=== PATIENT | female | born 1960 | race Caucasian/White ===

== ENCOUNTER 2016-04-25 17:17 | Inpatient (IN) ==
[2016-04-25] MEDS ORDERED: ALBUTEROL/IPRATROPIUM 3 ML NEB RESP TX STA (17:53)
[2016-04-25] MEDS ORDERED: LEVOFLOXACIN INJ 750 MG in PREMIX 1 EACH IV STA (17:53)
[2016-04-25] MEDS ORDERED: methylPREDNISolone SOD SUC 125 MG/2 ML VIAL IV STA (17:57)
--- NOTE | 2016-04-25 18:01 | Emergency Department Note ---
Arrival - Arrival Chief Complaint: Shortness of Breath Stated Complaint: Shortness of breath ED Nursing Triage Note: Brought in by EMS-transfer from [facility] for further evaluation of shortness of breath, pneumonia, and rule out PE. Mode of Arrival: Stretcher Limitations: No Limitations Source: Patient Time Seen by Provider: 04/25/16 17:39 - History of Present Illness HPI Narrative: This 55-year-old female presents with complaints of 12 hours of heavy chest pressure centrally located associated with a cough and dyspnea at rest and on exertion. The patient was evaluated at [facility] with notable findings of a very elevated d-dimer as well as a chest x-ray demonstrating a right lower lung infiltrate. The patient likewise in the last month has complained of bilateral leg pain with red hot swollen lower extremities. The patient is referred from the [facility] for evaluation of PTE but likewise for basic evaluation of what is going on. At [facility] the patient was given 40 mg Lasix IV, 325 mg of aspirin, and Lovenox 160 mg subcutaneous. Currently the patient appears uncomfortable but in no acute distress. Onset (ago): hour(s) (patient presents 12 hours post onset of symptoms) Consistency: constant Severity: moderate Quality: fullness Date of Last Menstrual Period: hysterectomy Allergies/Adverse Reactions: Allergies Allergy/AdvReac Type Severity Reaction Status Date / Time No Known Allergies Allergy Verified 04/25/16 17:31 Review of System - Review of System 12 point system: reviewed and no additional remarkable complaints except as stated - Review of System Constitutional: Present: as per HPI Respiratory: Present: as per HPI Cardiovascular: Present: as per HPI Musculoskeletal: Present: as per HPI Medical,Surgical,& Family Hx - Medical History Cardio: History of: CHF, Hypertension Psychological: History of: Schizophrenia Respiratory: History of: COPD - Social History Smoking Status: Never smoker Frequency of Alcohol Use: None Type of Drug Use: None Exam Physical Examination: GENERAL: Morbidly obese white female in no acute distress. HEENT: Normocephalic. No trauma. Moist mucous membranes. EOMI. PERRLA. ENT clear NECK: Supple. No adenopathy. No JVD CARDIAC: Regular. No murmurs. Heart rate 100 CHEST: Rare anterior expiratory wheeze as well as right posterior lower chest rales. No respiratory distress. O2 sat 88% ABDOMEN: Soft. Nontender. Active bowel sounds. EXTREMITIES: No trauma. Normal ROM. Bilateral stasis dermatitis with complicating stasis cellulitis and peripheral edema SKIN: No diaphoresis. No rash. Red hot tender stasis cellulitis bilaterally NEURO: Alert. Physiologic exam No focal deficits. Vital Signs: Vital Signs Temperature 97.9 F 04/25/16 17:17 Pulse Rate 101 H 04/25/16 19:17 Respiratory Rate 24 04/25/16 19:17 Blood Pressure 126/60 04/25/16 17:17 O2 Sat by Pulse Oximetry 98 04/25/16 19:17 Course - Reevaluation(s) Reevaluation #1: Discussed with patient and family the need for hospitalization further exclude her ongoing complaints and treat her establish problems. - Consultations Consultation #1: Discussed with Dr. Ham, hospitalist, who will admit for further evaluation treatment. Results - Labs Labs: Laboratory data revealed white blood cell count 8500, hematocrit 37, glucose 99 , BUN 4, creatinine 0.9, sodium 137, potassium 4.2, negative urinalysis, CK-MB 0.6, troponin 0.03, d-dimer 1.19, BNP 123, blood gas pH 7.40, PCO2 65, and PO2 43 on room air. - Impressions EKG: Sinus tachycardia at [address] changes. No acute injury pattern noted. - Diagnostic Findings Procedure: Chest x-ray: image reviewed by me, report reviewed by me (right lower lung field density), CT: image reviewed by me, report reviewed by me (non diagnostic cta), Ultrasound: image reviewed by me, report reviewed by me (no DVT lower extremities bilaterally.) Disposition Clinical Impression: respiratory failure, obesity hypoventilation, stasis cellulitis, possible PTE, CHF Case discussed with: patient, patient's family Disposition: Still a Patient Condition: Guarded Time of Disposition: 20:08
[2016-04-25] MEDS ORDERED: FUROSEMIDE 40 MG/4 ML VIAL IV STA (18:03)
[2016-04-25] MEDS ORDERED: methylPREDNISolone SOD SUC 125 MG/2 ML VIAL ONE (18:26)
[2016-04-25 18:30] LABS: ABG Base Excess 10.3 MMOL/L (-2.5-2.5); ABG Oxygen Saturation 93.2 % (95-100); ABG PCO2 62.6 MM HG (35-48); ABG PH 7.388 (7.35-7.45); ABG PO2 67.3 MM HG (80-95); ABG TCO2 34.1 MMOL/L (23-27)
[2016-04-25] MEDS ORDERED: FUROSEMIDE 40 MG/4 ML VIAL ONE (18:55)
[2016-04-25] MEDS ORDERED: LEVOFLOXACIN INJ 150 ML IV ONE (19:11)
--- NOTE | 2016-04-25 19:14 | CT Report ---
CT chest PE study Indication: Chest pain. High d-dimer. Comparison: None. Technique: CT of the chest was performed following the administration of intravenous contrast. In addition to multiple contiguous axial source images obtained from the thoracic inlet through the upper abdomen, coronal and sagittal MPR series were performed as were thin slab MIP reconstructions in the coronal and sagittal plane. Findings: Suboptimal opacification of the pulmonary arteries results in nondiagnostic study for purposes of exclusion of pulmonary artery emboli. Pulmonary arteries grossly normal in size. The heart size is normal. The aorta demonstrates no evidence of acute pathology. No adenopathy is noted within the axilla, marc, or mediastinum. Dependent atelectatic changes are present bilaterally within the lower lobes. No pleural effusions are present. Minimal margin of the right thyroid lobe is present. The visualized portion of the upper abdomen is grossly unremarkable. Impression: 1. Pulmonary artery embolus cannot be excluded. Etiology of the provided symptoms is uncertain based on the 2 attempts to scan the chest. 04/25/2016 6:57 PM PROCEDURE INTERPRETED AT [facility] DEPARTMENT OF RADIOLOGY Final Report Signed by: Dr. Santos Ventura
[2016-04-25] MEDS ORDERED: ALBUTEROL NEB SOLN 5 MG/ML 20 ML/BOTTLE CONT NEB STA (19:37)
--- NOTE | 2016-04-25 19:50 | Ultrasound Report ---
US venous doppler LE BI Indication: Lower extremity swelling and pain. Comparison: None. Technique: Using a transcutaneous probe, grayscale, spectral Doppler, and color Doppler images of the bilateral lower extremity venous structures were captured and stored. Grayscale images prior to and following compression were obtained. Interrogated venous structures include the bilateral common femoral vein, superficial femoral vein (proximal, mid, and distal), and popliteal vein. Findings: There is no evidence of thrombus within the interrogated venous structures. the interrogated venous segments demonstrate presence of both color flow and spectral flow. Impression: 1. No evidence of venous thrombosis. 04/25/2016 7:47 PM PROCEDURE INTERPRETED AT [facility] DEPARTMENT OF RADIOLOGY Final Report Signed by: Dr. Santos Ventura
--- NOTE | 2016-04-25 20:13 | Hospitalist History & Physical ---
Assessment and Plan - Time spent with patient Time spent with patient: Greater than 30 minutes (1) Dyspnea Status: Acute Assessment and plan: Patient presents with exacerbation of her chronic dyspnea. She is morbidly obese and I suspect she has obesity hypoventilation syndrome/obstructive sleep apnea which is been untreated. Chest x-ray did note possibility of a right lower lobe infiltrate for which she received IV antibiotics and been cultured. CT scan of her chest was unable to exclude pulmonary embolus and she is currently being treated with Lovenox. We will consult pulmonary for their assistance in the a.m. I'll defer ordering further studies until they have seen and evaluated. We'll continue low-dose O2 to maintain sats 88-92% as well as nebulizer therapy. Current Visit: Yes (2) Atypical chest pain Status: Acute Assessment and plan: Patient has atypical chest pain with initial negative biomarkers and EKGs. We' ll obtain serial studies throughout the night to rule out evidence of ischemia. Current Visit: Yes (3) History of congestive heart failure Status: Acute Assessment and plan: We'll obtain recent echocardiogram she had at [facility]. Continue to diurese with her extensive lower extremity edema. We'll continue her current YENY inhibitor and beta sarah as well. Further workup performed based on patient's response and results of the pending data base. Current Visit: Yes (4) Hypertension Status: Chronic Assessment and plan: Patient has chronic essential hypertension for which we'll continue her current medical regimen. Current Visit: Yes Qualifiers: Hypertension type: essential hypertension Qualified Code(s): I10 - Essential (primary) hypertension (5) possible community acquired pneumonia Status: Acute Assessment and plan: Has noted there is a possibility of right lower lobe infiltrate on chest x-ray. We will continue IV antibiotics and cultures as already initiated. However I doubt that this time this is the etiology of her exacerbation that she's been afebrile has a normal white count and no significant sputum production. Current Visit: Yes (6) Paranoid schizophrenia Status: Chronic Assessment and plan: Currently stable. We will review her medications and reinitiate as appropriate. Current Visit: Yes (7) COPD (chronic obstructive pulmonary disease) Status: Chronic Assessment and plan: Patient states that she has chronic obstructive pulmonary disease. We'll continue low-dose O2 and nebulizer therapy. Current Visit: Yes (8) Morbid obesity Status: Chronic Current Visit: Yes Qualifiers: Obesity type: with alveolar hypoventilation Qualified Code(s): E66.2 - Morbid (severe) obesity with alveolar hypoventilation History of Present Illness Chief complaint: chest pain and shortness of breath History of present illness: Ms. Feldman is a 55 year old female resident of the sn[facility] who states that over the past several weeks she's had progressive shortness of breath, lower extremity edema, intermittent chest discomfort. She does midsternal chest discomfort this morning with increasing shortness of breath as well as bilateral leg pain especially with standing. She's had a cough productive of clear phlegm but no fever. She denies any abdominal pain, nausea, vomiting, diarrhea, constipation, melena, hematochezia, hematemesis, dysuria, hematuria, urinary frequency urgency or incontinence. She was initially seen at [facility] where she was noted to have an elevated d-dimer and received subcutaneous Lovenox and transferred to [place] for further evaluation. Bilateral lower stroke and venous Dopplers have been negative. However CT scanning cannot exclude pulmonary embolus. Cardiac isoenzymes were negative and EKG revealed no acute changes. Medications from transfer record reviewed. Allergies Allergy/AdvReac Type Severity Reaction Status Date / Time No Known Allergies Allergy Verified 04/25/16 17:31 Medical,Surgical,& Family Hx - Medical History Cardio: History of: CHF, Hypertension Psychological: History of: Schizophrenia Respiratory: History of: COPD - Surgical History Abdominal Surgeries: Surgical HX of: Cholecystectomy Reproductive Surgeries: Surgical HX of;: Hysterectomy - Family History Family History: noncontributory - Social History Smoking Status: Former smoker Have you smoked in the last 12 months: No Frequency of Alcohol Use: None Type of Drug Use: None Lives With:: lives in snf 12 point system: reviewed and no additional remarkable complaints except as stated Exam - Constitutional Vitals: Period Temp Pulse Resp BP Sys/Langston Pulse Ox Last 24 Hr 97.9 F 101-106 20-24 126/60 88-98 General appearance: mild distress - Head Head exam: Present: normocephalic, atraumatic - Eye Eye exam: Present: EOMI Pupils: Present: RA - ENT ENT exam: Present: normal oropharynx - Neck Neck exam: Absent: lymphadenopathy, meningismus, tenderness, thyromegaly - Respiratory Respiratory exam: Present: clear to auscultation bilaterally, decreased breath sounds. Absent: rales, rhonchi, wheezes - Cardiovascular Cardiovascular exam: Present: regular rate and rhythm, tachycardia. Absent: gallop, rubs, systolic murmur - GI/Abdominal GI/Abdominal exam: Present: normal bowel sounds, soft. Absent: distended, mass , tenderness, rebound - Extremities Exam Extremities exam: Present: edema (2-3+ pitting edema of bilateral lower extremities). Absent: calf tenderness - Back Exam Back exam: Present: normal inspection - Neurological Exam Neurological exam: Present: alert, oriented X3, CN II-XII intact. Absent: motor sensory deficit - Psychiatric Psychiatric exam: Present: normal mood, flat affect. Absent: agitated, anxious - Skin Skin exam: Present: warm, dry. Absent: rash Results - Labs Lab Results: I have reviewed the past 24 hour labs Labs: Labs and radiologic studies as well as EKG from [facility] have been reviewed. - Diagnostic Findings Procedure: CT - chest: report reviewed by me, Ultrasound: report reviewed by me
[2016-04-25] MEDS ORDERED: oxyCODONE/ACETAMINOPHEN 5-325 MG TABLET PO ONE (20:33)
[2016-04-25] MEDS ORDERED: oxyCODONE/ACETAMINOPHEN 5-325 MG TABLET ONE (21:23)
[2016-04-25] MEDS ORDERED: ALBUTEROL 1.25 MG/3 ML NEB RESP TX PRN (22:37)
--- NOTE | 2016-04-25 22:40 | EKG Report ---
Stationary ECG Study [facility] Test Date: 04/25/2016 5:25:52 PM Pat Name: SEGUNDO CONDE Department: Room: 292 Gender: F Director Of Child Welfare Services: YESSI : 1960 Requested by: Lata Damon Order Number: [id number] Reading MD: THAIS MURRAY Intervals [place] Rate: 107 P: 77 UT: 156 QRS: 44 QRSD: 98 T: 44 QT: 351 QTc: 413 Interpretive Statements Regular sinus rhythm. Nonspecific ST and T. No acute changes. Electronically Signed On 04-26-16 09:06:59 RUBBER STAMP DIE INSPECTOR by THAIS MURRAY [email or web address]
[2016-04-26] MEDS: ENOXAPARIN 100 MG/ML SYRINGE SUBCUT SCH ×2 (00:03→12:59)
[2016-04-26] MEDS: ALBUTEROL 1.25 MG/3 ML NEB RESP TX SCH ×7 (00:11→23:31)
[2016-04-26] MEDS: FUROSEMIDE 40 MG/4 ML VIAL IV SCH ×4 (00:17→18:33)
[2016-04-26 06:03] LABS: Basophils % 0.1 % (0.0-0.8); Hematocrit 35.9 VOL% (35.7-47.0); Hemoglobin 10.8 GM/DL (12.0-16.0); Immature Granulocytes % 0.5 %; Immature Granulocytes Absolute 0.04 #; Mean Corpuscular HGB Conc 30.1 GM/DL (32-36); Mean Corpuscular Hemoglobin 27 PG (27-34); Mean Corpuscular Volume 90.4 FL (87-102); Mean Platelet Volume 8.8 FL (9.6-12.0); Monocytes # 0.2 10*3/uL (0.11-0.8); NRBC # 0.02 10*3/uL; Neutrophils # 7.2 10*3/uL (1.4-7.4); Neutrophils % 85.4 % (38.7-73.9); Platelet Count 337 10*3/uL (130-400); Red Blood Count 3.97 10*6/uL (3.8-5.5); Red Cell Distribution Width 15.2 % (9.3-17.3); White Blood Count 8.4 10*3/uL (4.5-13.71)
[2016-04-26 06:36] LABS: Calcium 8.3 MG/DL (8.5-10.1); Osmolality,Calculated 283.1 MOS/KG (273-304); Potassium 4.3 MMOL/L (3.5-5.1); Risk Ratio 5.1; VLDL CHOLESTEROL 52.8 MG/DL
--- NOTE | 2016-04-26 07:24 | EKG Report ---
Stationary ECG Study [facility] Test Date: 04/26/2016 7:10:07 AM Pat Name: SEGUNDO CONDE Department: Room: 292 Gender: F Stone Finisher: BETINA : 1960 Requested by: Lata Damon Order Number: [id number] Reading MD: MONI HEREDIA Intervals [place] Rate: 111 P: 74 MI: 148 QRS: 32 QRSD: 101 T: 46 QT: 335 QTc: 401 Interpretive Statements SINUS TACHYCARDIA LOW QRS VOLTAGE IN PRECORDIAL LEADS ABNORMAL RHYTHM ECG Electronically Signed On 04-26-16 11:22:42 PROBATION OFFICER by MONI HEREDIA [email or web address]
--- NOTE | 2016-04-26 08:33 | Pulmonology Consult Note ---
Assessment and Plan (1) Obesity hypoventilation syndrome Status: Acute Assessment and plan: The patient does appear to have chronic CO2 retention with obesity hypoventilation syndrome. She seems to be reasonably comfortable at present. We'll try a little Diamox and continue bronchodilator therapy. Current Visit: Yes (2) Morbid obesity Status: Chronic Assessment and plan: She is a [facility] patient who is mainly bedridden. She will probably not get much better. Current Visit: Yes Qualifiers: Obesity type: with alveolar hypoventilation Qualified Code(s): E66.2 - Morbid (severe) obesity with alveolar hypoventilation (3) History of congestive heart failure Status: Acute Assessment and plan: She probably does have some mild volume overload and is getting treatment. Current Visit: Yes (4) Paranoid schizophrenia Status: Chronic Assessment and plan: She seems to be relatively calm and alert at present. Current Visit: Yes (5) Hypertension Status: Chronic Assessment and plan: She will continue with antihypertensive medications. Current Visit: Yes Qualifiers: Hypertension type: essential hypertension Qualified Code(s): I10 - Essential (primary) hypertension (6) COPD (chronic obstructive pulmonary disease) Status: Chronic Assessment and plan: She has stopped smoking and will continue with bronchodilator therapy. Current Visit: Yes (7) Atypical chest pain Status: Acute Assessment and plan: She has no signs of ischemia and she looks comfortable at present. Current Visit: Yes History of Present Illness Chief complaint: chest pain History of present illness: Ms. Feldman is a 55 year old white female that is a resident of a [facility] and has schizophrenia. She apparently was sent over because she was having chest pain. She says she does have shortness of breath and I don't think she does much activity. She says she has osteoporosis and arthritis. She is very obese and cannot do a lot of activity. She says she quit smoking 2 years ago but did smoke for about 30 years. She says she coughs occasionally wheezes. She came in with chest pain and has had negative Dopplers and CT angiogram. So far she has had negative cardiac enzymes also. She does not appear short of breath or having any chest pain present. She did say at one time she used CPAP at night but doesn't anymore. Allergies Allergy/AdvReac Type Severity Reaction Status Date / Time No Known Allergies Allergy Verified 04/25/16 17:31 - Constitutional Constitutional: Present: weight gain. Absent: chills, fever(s) - EENT Eyes: Absent: loss of vision Ears: Absent: decreased hearing Nose, mouth and throat: Absent: dysphagia, headache(s), sinus pressure - Cardiovascular Cardiovascular: Present: chest pain at rest, dyspnea on exertion, orthopnea. Absent: palpitations - Respiratory Respiratory: Present: cough, dyspnea, wheezing, snoring. Absent: pain on inspiration, change in phlegm color - Gastrointestinal Gastrointestinal: Absent: abdominal pain, change in bowel habits, dysphagia, heartburn, nausea, vomiting - Genitourinary Genitourinary: Absent: difficulty urinating, hematuria, urinary incontinence - Musculoskeletal Musculoskeletal: Present: arthralgias, back pain, muscle weakness - Neurological Neurological: Absent: abnormal speech, focal weakness, paresthesias - Psychiatric Psychiatric: Present: anxiety Exam (Pulmon) H&P - Constitutional Vitals: Period Temp Pulse Resp BP Sys/Langston Pulse Ox Last 24 Hr 96.4 F-98.2 F 92-112 14-24 99-116/43-64 89-96 General appearance: no acute distress, morbidly obese - Head Head exam: Present: normal inspection, normocephalic - Eye Eye exam: Present: EOMI. Absent: scleral icterus Pupils: Present: RA - ENT ENT exam: Present: other (she has a class III Mallampati exam) - Neck Neck exam: Present: normal inspection. Absent: lymphadenopathy, thyromegaly - Respiratory Respiratory exam: Present: rhonchi, other (she is moving air fairly well now with minimal rhonchi.) - Cardiovascular Cardiovascular exam: Present: regular rate and rhythm. Absent: gallop, systolic murmur - GI/Abdominal GI/Abdominal exam: Present: normal bowel sounds, soft, other (she is very obese abdomen). Absent: distended, organomegaly, tenderness - Extremities Exam Extremities exam: Present: edema (she does have some brawny edema lower extremities). Absent: calf tenderness - Neurological Exam Neurological exam: Present: alert, oriented X3, CN II-XII intact. Absent: motor sensory deficit - Psychiatric Psychiatric exam: Present: normal mood, flat affect. Absent: agitated - Skin Skin exam: Present: warm, dry Medical,Surgical,& Family Hx - Medical History Cardio: History of: CHF, Hypertension Psychological: History of: Anxiety Disorders, Schizophrenia Respiratory: History of: Asthma, COPD Genitourinary: History of: Recurring Urinary Tract Infections - Surgical History Abdominal Surgeries: Surgical HX of: Cholecystectomy Reproductive Surgeries: Surgical HX of;: Hysterectomy - Family History Family History: Reports;: Family Heart Disease (heart attack), Family Hypertension (mother) - Social History Smoking Status: Former smoker Frequency of Alcohol Use: None Type of Drug Use: None Results - Labs CBC & BMP: 04/26/16 05:39 04/26/16 05:39 Labs: Her ABG show a PO2 of 67 with a PCO2 of 62 and a pH is 7.38 - Diagnostic Findings Procedure: CT - chest: image reviewed by me, report reviewed by me (CT shows no infiltrates or pulmonary emboli), Ultrasound: report reviewed by me (venous Dopplers are negative)
[2016-04-26] MEDS: VENLAFAXINE 75 MG TABLET PO SCH (09:25)
[2016-04-26] MEDS: clonazePAM 0.5 MG TABLET PO SCH ×2 (09:25→21:04)
[2016-04-26] MEDS: DIVALPROEX 500 MG TABLET PO SCH ×2 (09:25→21:01)
[2016-04-26] MEDS: CARVEDILOL 3.125 MG TABLET PO SCH ×2 (09:25→21:04)
[2016-04-26] MEDS: PANTOPRAZOLE 40 MG TABLET PO SCH (09:26)
[2016-04-26] MEDS: GABAPENTIN 300 MG CAPSULE PO SCH ×3 (09:26→21:04)
[2016-04-26] MEDS: LURASIDONE 40 MG TABLET PO SCH (09:26)
--- NOTE | 2016-04-26 10:37 | Hospitalist Progress Note ---
Assessment and Plan (1) CHF (congestive heart failure) Status: Acute Assessment and plan: It is not clear at the present time if she is experiencing acute CHF. I will obtain an echo and BNP. Current Visit: Yes (2) possible community acquired pneumonia Status: Acute Assessment and plan: The chest xray showed an equivocal pneumonia for which she was begun on antibiotics. Current Visit: Yes (3) Atypical chest pain Status: Acute Assessment and plan: No further chest pain. Troponins have been normal. Current Visit: Yes (4) Pulmonary emboli Status: Acute Assessment and plan: The CT of the chest was equivocal for PE, although venous duplex Doppler did not show DVT. She is presently on therapeutic anticoagulation. Current Visit: Yes (5) Hypertension Status: Chronic Assessment and plan: BP today is 116/74. Current Visit: Yes Qualifiers: Hypertension type: essential hypertension Qualified Code(s): I10 - Essential (primary) hypertension (6) Morbid obesity Status: Chronic Current Visit: Yes Qualifiers: Obesity type: with alveolar hypoventilation Qualified Code(s): E66.2 - Morbid (severe) obesity with alveolar hypoventilation (7) Paranoid schizophrenia Status: Chronic Current Visit: Yes Hospitalist: Subjective Interval history: She continues to complain of SOB and weakness. Exam - Constitutional Vitals: Period Temp Pulse Resp BP Sys/Langston Pulse Ox Last 24 Hr 96.4 F-98.2 F 92-112 14-24 99-116/43-64 89-99 General appearance: no acute distress, morbidly obese - Head Head exam: Present: normal inspection - Neck Neck exam: Present: normal inspection - Respiratory Respiratory exam: Present: decreased breath sounds - Cardiovascular Cardiovascular exam: Present: regular rate and rhythm - Extremities Exam Extremities exam: Present: edema, other (obese) - Skin Skin exam: Present: normal color Results - Labs CBC & BMP: 04/26/16 05:39 04/26/16 05:39
--- NOTE | 2016-04-26 14:18 | ECHO Report ---
Sharron Feldman Exam Date: 04/26/2016 11:42 Referring Physician: Technologist: Marah Gonzalez RDCS Age: 55 Ht (in): Wt (lb): Gender: F Exam Location: [facility] Echo Indications: Chest pain, unspecified, Dyspnea, unspecified, Morbid (severe) obesity due to excess calories, Heart failure, unspecified, Schizophrenia, Pulmonary emboli BP: / HR: Rhythm: Sinus Technical Quality: Technically difficult study IMPRESSIONS Technically difficult study. Normal left ventricular cavity size. EF 65 %. Grade I/IV diastolic dysfunction (abnormal relaxation filling pattern), normal to mildly elevated filling pressures. Mildly increased right ventricular size. The right atrium is mildly enlarged. The left atrium is mildly enlarged. Morphologically normal mitral valve. No mitral valve regurgitation. Aortic valve sclerosis. No aortic valve regurgitation. Moderate tricuspid valve regurgitation. PAP 45-50 mmHg. Pulmonic valve not well visualized. Normal pericardium without effusion. Normal ascending aorta dimension. MEASUREMENTS (Male / Female) Normal Values 2D ECHO LV Diastolic Diameter PLAX 5.3 cm 4.2 - 5.9 / 3.9 - 5.3 cm LV Systolic Diameter PLAX 3.1 cm LV Fractional Shortening PLAX 42.1 % IVS Diastolic Thickness 1.1 cm 0.6 - 1.0 / 0.6 - 0.9 cm LVPW Diastolic Thickness 1.1 cm 0.6 - 1.0 / 0.6 - 0.9 cm RV Internal Dim ED PLAX 3.8 cm Aortic Root Diameter 3.1 cm LA Systolic Diameter LX 4.3 cm 3.0 - 4.0 / 2.7 - 3.8 cm DOPPLER TR Peak Velocity 259.0 cm/s TR Peak Gradient 26.8 mmHg FINDINGS Left Ventricle Normal left ventricular cavity size. EF 65 %. Grade I/IV diastolic dysfunction (abnormal relaxation filling pattern), normal to mildly elevated filling pressures. Right Ventricle Mildly increased right ventricular size. Right Atrium The right atrium is mildly enlarged. Left Atrium The left atrium is mildly enlarged. Mitral Valve Morphologically normal mitral valve. No mitral valve regurgitation. Aortic Valve Aortic valve sclerosis. No aortic valve regurgitation. Tricuspid Valve Morphologically normal tricuspid valve. Moderate tricuspid valve regurgitation. PAP 45-50 mmHg. Pulmonic Valve Pulmonic valve not well visualized. Pericardium Normal pericardium without effusion. Aorta Normal ascending aorta dimension. Karlo Omar (Electronically Signed) Final Date: 26 April 2016 14:17
[2016-04-26] MEDS: LEVOFLOXACIN INJ 750 MG in PREMIX 1 EACH IV SCH (18:33)
[2016-04-26] MEDS: traZODone 50 MG TABLET PO SCH (21:02)
[2016-04-26] MEDS: LISINOPRIL 5 MG TABLET PO SCH (21:03)
[2016-04-27] MEDS: ENOXAPARIN 100 MG/ML SYRINGE SUBCUT SCH ×2 (00:04→11:05)
[2016-04-27] MEDS: FUROSEMIDE 40 MG/4 ML VIAL IV SCH ×4 (00:05→17:55)
[2016-04-27] MEDS: ALBUTEROL 1.25 MG/3 ML NEB RESP TX SCH ×5 (03:28→20:10)
[2016-04-27 06:28] LABS: Basophils % 0.4 % (0.0-0.8); Eosinophils % 0.3 % (0.00-10.9); Hematocrit 35.4 VOL% (35.7-47.0); Hemoglobin 10.7 GM/DL (12.0-16.0); Immature Granulocytes % 0.6 %; Immature Granulocytes Absolute 0.06 #; Lymphocytes # 2.9 10*3/uL (1.4-4.0); Lymphocytes % 29.5 % (21.3-54.2); Mean Corpuscular HGB Conc 30.2 GM/DL (32-36); Mean Corpuscular Hemoglobin 28 PG (27-34); Mean Corpuscular Volume 91.5 FL (87-102); Mean Platelet Volume 8.9 FL (9.6-12.0); Monocytes # 1.2 10*3/uL (0.11-0.8); Monocytes % 11.9 % (1.7-12.7); Neutrophils # 5.7 10*3/uL (1.4-7.4); Neutrophils % 57.3 % (38.7-73.9); Platelet Count 342 10*3/uL (130-400); Red Blood Count 3.87 10*6/uL (3.8-5.5); White Blood Count 9.9 10*3/uL (4.5-13.71)
[2016-04-27 06:56] LABS: Calcium 8.2 MG/DL (8.5-10.1); Osmolality,Calculated 283.1 MOS/KG (273-304); Potassium 3.9 MMOL/L (3.5-5.1)
--- NOTE | 2016-04-27 09:14 | Hospitalist Progress Note ---
Assessment and Plan (1) CHF (congestive heart failure) Status: Acute Assessment and plan: She continues on furosemide. She is minimally out of bed. I will consult PT. Current Visit: Yes (2) possible community acquired pneumonia Status: Acute Assessment and plan: The chest xray showed an equivocal pneumonia for which she was begun on antibiotics. This is day 3. Current Visit: Yes (3) Atypical chest pain Status: Acute Assessment and plan: No further chest pain. Troponins have been normal. Current Visit: Yes (4) Pulmonary emboli Status: Acute Assessment and plan: The CT of the chest was equivocal for PE, although venous duplex Doppler did not show DVT. She is presently on therapeutic anticoagulation. I will start warfarin. Current Visit: Yes (5) Hypertension Status: Chronic Assessment and plan: BP today is 125/60. Current Visit: Yes Qualifiers: Hypertension type: essential hypertension Qualified Code(s): I10 - Essential (primary) hypertension (6) Morbid obesity Status: Chronic Current Visit: Yes Qualifiers: Obesity type: with alveolar hypoventilation Qualified Code(s): E66.2 - Morbid (severe) obesity with alveolar hypoventilation (7) Paranoid schizophrenia Status: Chronic Current Visit: Yes Exam - Constitutional Vitals: Period Temp Pulse Resp BP Sys/Langston Pulse Ox Last 24 Hr 96.3 F-98.2 F 78-110 16-20 102-125/47-65 90-99 General appearance: no acute distress, morbidly obese - Head Head exam: Present: normal inspection - Neck Neck exam: Present: normal inspection - Respiratory Respiratory exam: Present: decreased breath sounds - Cardiovascular Cardiovascular exam: Present: regular rate and rhythm - GI/Abdominal GI/Abdominal exam: Present: normal bowel sounds, soft, other (nontender) - Extremities Exam Extremities exam: Present: edema - Skin Skin exam: Present: normal color Results - Labs CBC & BMP: 04/27/16 05:36 04/27/16 05:36 Specialty Discharge - Follow Up or Referrals - Discharge Medications No Action Alum/Mag/Simeth Liquid [Mylanta Liquid] 5 ml PO Q4HR PRN PRN Reason: Indigestion Trazodone HCl 100 mg PO QPM Gabapentin Cap/Tab [Neurontin Cap/Tab] 300 mg PO TID Acetaminophen Tab [Tylenol Tab] 500 mg PO Q6HR PRN PRN Reason: Pain Zolpidem Tartrate [Ambien] 10 mg PO QPM PRN MDD 10 mg PRN Reason: Sleep Cholecalciferol (Vitamin D3) [Vitamin D3] 5,000 unit PO DAILY Albuterol Sulfate [Proair HFA] 1 puff Q6HR Pravastatin [Pravachol] 10 mg QPM Carvedilol [Coreg] 3.125 mg PO BID clonazePAM [Klonopin] 1 mg PO BID Venlafaxine [Effexor] 75 mg PO BID W/MEALS Promethazine Tab [Phenergan Tab] 25 mg PO Q8HR PRN PRN Reason: Nausea Oxycodone HCl/Acetaminophen [Percocet 10-325 mg Tablet] 10 - 325 mg PO Q8HR PRN PRN Reason: Pain Omeprazole Magnesium [Prilosec Otc] 20 mg PO BID Methocarbamol Tab [Robaxin Tab] 750 mg PO BID Meloxicam [Mobic] 7.5 mg PO DAILY Lurasidone [Latuda] 40 mg PO DAILY Lisinopril 5 mg PO QPM Furosemide Tab [Lasix Tab] 40 mg PO DAILY Estradiol [Estrace Tab] 0.5 mg PO DAILY Divalproex ER [Depakote ER] 500 mg PO BID Cranberry Fruit [Cranberry] 450 mg PO DAILY
[2016-04-27] MEDS: VENLAFAXINE 75 MG TABLET PO SCH (09:31)
[2016-04-27] MEDS: CARVEDILOL 3.125 MG TABLET PO SCH ×2 (09:31→21:25)
[2016-04-27] MEDS: LISINOPRIL 5 MG TABLET PO SCH (09:31)
[2016-04-27] MEDS: LURASIDONE 40 MG TABLET PO SCH (09:32)
[2016-04-27] MEDS: DIVALPROEX 500 MG TABLET PO SCH ×2 (09:32→21:26)
[2016-04-27] MEDS: GABAPENTIN 300 MG CAPSULE PO SCH ×3 (09:32→21:24)
[2016-04-27] MEDS: PANTOPRAZOLE 40 MG TABLET PO SCH (09:32)
[2016-04-27] MEDS: clonazePAM 0.5 MG TABLET PO SCH ×2 (09:32→21:26)
--- NOTE | 2016-04-27 10:58 | Pulmonology Progress Note ---
Pulmonary - PN: Subj Interval history: This is a 55-year-old morbidly obese white female whom I am seeing for Dr. Laureano Ayala. She was seen in consultation by Dr. Ayala 04/26/2016. She is a [facility] patient. She has schizophrenia. She has a lot of arthritis along with back pain chest pain. Her cardiac enzymes have been negative and her pain is thought to be atypical. She also had a negative CT angiogram looking for pulmonary emboli. Her chest x-ray does appear to be normal. There may be some underlying COPD. This patient is an ex-smoker. She has been diuresed and she is getting bronchodilators. Today she says she thinks her breathing is doing fine. She notes that she sat up to sleep last night and does a lot better in this regard. There were no new requests and no new or complaints. ABGs done 04/25/2016 showed a pH of 7.388. PCO2 is 62.6. PO2 was 63.3. Bicarb was 34. Lab. Reviewed. CBC and BMP are stable. Calcium is low at 8.2. Physical exam. Vital signs. See below. Psychiatric. Slightly flat affect. Neurologic. Cranial nerves intact. Patient moves all 4 extremities. Neck is short thick symmetrical with no meningismus. Chest is wheeze free. I do not hear any significant congestion. Heart no gallop Abdomen nontender. Bowel sounds are present Extremities. Nothing to suggest deep venous thrombophlebitis. The remainder the physical exam is noncontributory. Plan. 1. Continue present regimen. 2. As per Dr. Laureano Ayala 3. Tendency towards CO2 retention avoid high FiO2's of possible. Exam (Progress Note) - Constitutional Vitals: Period Temp Pulse Resp BP Sys/Langston Pulse Ox Last 24 Hr 96.3 F-98.2 F 78-110 16-20 102-125/47-65 90-99 Results - Labs CBC & BMP: 04/27/16 05:36 04/27/16 05:36 Specialty Discharge - Follow Up or Referrals - Discharge Medications No Action Alum/Mag/Simeth Liquid [Mylanta Liquid] 5 ml PO Q4HR PRN PRN Reason: Indigestion Trazodone HCl 100 mg PO QPM Gabapentin Cap/Tab [Neurontin Cap/Tab] 300 mg PO TID Acetaminophen Tab [Tylenol Tab] 500 mg PO Q6HR PRN PRN Reason: Pain Zolpidem Tartrate [Ambien] 10 mg PO QPM PRN MDD 10 mg PRN Reason: Sleep Cholecalciferol (Vitamin D3) [Vitamin D3] 5,000 unit PO DAILY Albuterol Sulfate [Proair HFA] 1 puff Q6HR Pravastatin [Pravachol] 10 mg QPM Carvedilol [Coreg] 3.125 mg PO BID clonazePAM [Klonopin] 1 mg PO BID Venlafaxine [Effexor] 75 mg PO BID W/MEALS Promethazine Tab [Phenergan Tab] 25 mg PO Q8HR PRN PRN Reason: Nausea Oxycodone HCl/Acetaminophen [Percocet 10-325 mg Tablet] 10 - 325 mg PO Q8HR PRN PRN Reason: Pain Omeprazole Magnesium [Prilosec Otc] 20 mg PO BID Methocarbamol Tab [Robaxin Tab] 750 mg PO BID Meloxicam [Mobic] 7.5 mg PO DAILY Lurasidone [Latuda] 40 mg PO DAILY Lisinopril 5 mg PO QPM Furosemide Tab [Lasix Tab] 40 mg PO DAILY Estradiol [Estrace Tab] 0.5 mg PO DAILY Divalproex ER [Depakote ER] 500 mg PO BID Cranberry Fruit [Cranberry] 450 mg PO DAILY
[2016-04-27 11:19] LABS: INR 1.1; PT Patient Result 11.5 SECS
[2016-04-27] MEDS: WARFARIN 5 MG TABLET PO SCH (18:02)
[2016-04-27] MEDS: LEVOFLOXACIN INJ 750 MG in PREMIX 1 EACH IV SCH (18:03)
[2016-04-27] MEDS: traZODone 50 MG TABLET PO SCH (21:25)
[2016-04-28] MEDS: FUROSEMIDE 40 MG/4 ML VIAL IV SCH ×4 (00:02→17:46)
[2016-04-28] MEDS: ENOXAPARIN 100 MG/ML SYRINGE SUBCUT SCH ×2 (00:02→11:45)
[2016-04-28] MEDS: ALBUTEROL 1.25 MG/3 ML NEB RESP TX SCH ×6 (00:54→19:17)
[2016-04-28 06:14] LABS: INR 1.1; PT Patient Result 11.2 SECS
[2016-04-28] MEDS: DIVALPROEX 500 MG TABLET PO SCH ×2 (08:48→21:23)
[2016-04-28] MEDS: GABAPENTIN 300 MG CAPSULE PO SCH ×3 (08:48→21:22)
[2016-04-28] MEDS: VENLAFAXINE 75 MG TABLET PO SCH (08:48)
[2016-04-28] MEDS: LURASIDONE 40 MG TABLET PO SCH (08:48)
[2016-04-28] MEDS: CARVEDILOL 3.125 MG TABLET PO SCH ×2 (08:48→21:22)
[2016-04-28] MEDS: clonazePAM 0.5 MG TABLET PO SCH ×2 (08:48→21:22)
[2016-04-28] MEDS: LISINOPRIL 5 MG TABLET PO SCH (08:48)
[2016-04-28] MEDS: PANTOPRAZOLE 40 MG TABLET PO SCH ×2 (08:49→21:22)
--- NOTE | 2016-04-28 10:47 | Hospitalist Progress Note ---
Assessment and Plan (1) CHF (congestive heart failure) Status: Acute Assessment and plan: She continues on furosemide. She does very little physical activity. Current Visit: Yes (2) possible community acquired pneumonia Status: Acute Assessment and plan: The chest xray showed an equivocal pneumonia for which she was begun on antibiotics. This is day 4. Current Visit: Yes (3) Atypical chest pain Status: Acute Assessment and plan: No further chest pain. Troponins have been normal. Current Visit: Yes (4) Pulmonary emboli Status: Acute Assessment and plan: The CT of the chest was equivocal for PE, although venous duplex Doppler did not show DVT. She is presently on therapeutic anticoagulation. I will start warfarin. Current Visit: Yes (5) Hypertension Status: Chronic Assessment and plan: BP today is 114/57. Current Visit: Yes Qualifiers: Hypertension type: essential hypertension Qualified Code(s): I10 - Essential (primary) hypertension (6) Morbid obesity Status: Chronic Current Visit: Yes Qualifiers: Obesity type: with alveolar hypoventilation Qualified Code(s): E66.2 - Morbid (severe) obesity with alveolar hypoventilation (7) Paranoid schizophrenia Status: Chronic Current Visit: Yes Hospitalist: Subjective Interval history: She complains of weakness, dyspnea with minimal physical activity, and heartburn. Exam - Constitutional Vitals: Period Temp Pulse Resp BP Sys/Langston Pulse Ox Last 24 Hr 96.3 F-98.4 F 80-98 16-20 97-126/49-80 90-98 General appearance: no acute distress, morbidly obese - Head Head exam: Present: normal inspection - Neck Neck exam: Present: normal inspection - Respiratory Respiratory exam: Present: decreased breath sounds - Cardiovascular Cardiovascular exam: Present: regular rate and rhythm - GI/Abdominal GI/Abdominal exam: Present: normal bowel sounds, soft, other (nontender) - Extremities Exam Extremities exam: Present: normal inspection - Skin Skin exam: Present: normal color Results - Labs CBC & BMP: 04/27/16 05:36 04/27/16 05:36 Specialty Discharge - Follow Up or Referrals - Discharge Medications No Action Alum/Mag/Simeth Liquid [Mylanta Liquid] 5 ml PO Q4HR PRN PRN Reason: Indigestion Trazodone HCl 100 mg PO QPM Gabapentin Cap/Tab [Neurontin Cap/Tab] 300 mg PO TID Acetaminophen Tab [Tylenol Tab] 500 mg PO Q6HR PRN PRN Reason: Pain Zolpidem Tartrate [Ambien] 10 mg PO QPM PRN MDD 10 mg PRN Reason: Sleep Cholecalciferol (Vitamin D3) [Vitamin D3] 5,000 unit PO DAILY Albuterol Sulfate [Proair HFA] 1 puff Q6HR Pravastatin [Pravachol] 10 mg QPM Carvedilol [Coreg] 3.125 mg PO BID clonazePAM [Klonopin] 1 mg PO BID Venlafaxine [Effexor] 75 mg PO BID W/MEALS Promethazine Tab [Phenergan Tab] 25 mg PO Q8HR PRN PRN Reason: Nausea Oxycodone HCl/Acetaminophen [Percocet 10-325 mg Tablet] 10 - 325 mg PO Q8HR PRN PRN Reason: Pain Omeprazole Magnesium [Prilosec Otc] 20 mg PO BID Methocarbamol Tab [Robaxin Tab] 750 mg PO BID Meloxicam [Mobic] 7.5 mg PO DAILY Lurasidone [Latuda] 40 mg PO DAILY Lisinopril 5 mg PO QPM Furosemide Tab [Lasix Tab] 40 mg PO DAILY Estradiol [Estrace Tab] 0.5 mg PO DAILY Divalproex ER [Depakote ER] 500 mg PO BID Cranberry Fruit [Cranberry] 450 mg PO DAILY
--- NOTE | 2016-04-28 11:49 | Pulmonology Progress Note ---
Pulmonary - PN: Subj Interval history: 04/27/2016 .this is a 55-year-old morbidly obese white female whom I am seeing for Dr. Laureano Ayala. She was seen in consultation by Dr. Ayala 2016. She is a [facility] patient. She has schizophrenia. She has a lot of arthritis along with back pain chest pain. Her cardiac enzymes have been negative and her pain is thought to be atypical. She also had a negative CT angiogram looking for pulmonary emboli. Her chest x-ray does appear to be normal. There may be some underlying COPD. This patient is an ex-smoker. She has been diuresed and she is getting bronchodilators. Today she says she thinks her breathing is doing fine. She notes that she sat up to sleep last night and does a lot better in this regard. There were no new requests and no new or complaints. ABGs done 04/25/2016 showed a pH of 7.388. PCO2 is 62.6. PO2 was 63.3. Bicarb was 34. Lab. Reviewed. CBC and BMP are stable. Calcium is low at 8.2. 04/28/2016. Patient says she is doing well. She has no new problems and no new requests. INR is 1.1. I find nothing different on her physical exam. I reviewed her medicines and made no changes. Also labs been reviewed. Physical exam. Vital signs. See below. Psychiatric. Slightly flat affect. Neurologic. Cranial nerves intact. Patient moves all 4 extremities. Neck is short thick symmetrical with no meningismus. Chest is wheeze free. I do not hear any significant congestion. Heart no gallop Abdomen nontender. Bowel sounds are present Extremities. Nothing to suggest deep venous thrombophlebitis. The remainder the physical exam is noncontributory. Plan. 1. Continue present regimen. 2. As per Dr. Laureano Ayala 3. Tendency towards CO2 retention avoid high FiO2's of possible. Exam (Progress Note) - Constitutional Vitals: Period Temp Pulse Resp BP Sys/Langston Pulse Ox Last 24 Hr 96.3 F-98.4 F 80-101 16-20 97-126/49-80 90-98 Results - Labs CBC & BMP: 04/27/16 05:36 04/27/16 05:36 Specialty Discharge - Follow Up or Referrals - Discharge Medications No Action Alum/Mag/Simeth Liquid [Mylanta Liquid] 5 ml PO Q4HR PRN PRN Reason: Indigestion Trazodone HCl 100 mg PO QPM Gabapentin Cap/Tab [Neurontin Cap/Tab] 300 mg PO TID Acetaminophen Tab [Tylenol Tab] 500 mg PO Q6HR PRN PRN Reason: Pain Zolpidem Tartrate [Ambien] 10 mg PO QPM PRN MDD 10 mg PRN Reason: Sleep Cholecalciferol (Vitamin D3) [Vitamin D3] 5,000 unit PO DAILY Albuterol Sulfate [Proair HFA] 1 puff Q6HR Pravastatin [Pravachol] 10 mg QPM Carvedilol [Coreg] 3.125 mg PO BID clonazePAM [Klonopin] 1 mg PO BID Venlafaxine [Effexor] 75 mg PO BID W/MEALS Promethazine Tab [Phenergan Tab] 25 mg PO Q8HR PRN PRN Reason: Nausea Oxycodone HCl/Acetaminophen [Percocet 10-325 mg Tablet] 10 - 325 mg PO Q8HR PRN PRN Reason: Pain Omeprazole Magnesium [Prilosec Otc] 20 mg PO BID Methocarbamol Tab [Robaxin Tab] 750 mg PO BID Meloxicam [Mobic] 7.5 mg PO DAILY Lurasidone [Latuda] 40 mg PO DAILY Lisinopril 5 mg PO QPM Furosemide Tab [Lasix Tab] 40 mg PO DAILY Estradiol [Estrace Tab] 0.5 mg PO DAILY Divalproex ER [Depakote ER] 500 mg PO BID Cranberry Fruit [Cranberry] 450 mg PO DAILY
[2016-04-28] MEDS: WARFARIN 5 MG TABLET PO SCH (18:08)
[2016-04-28] MEDS: LEVOFLOXACIN INJ 750 MG in PREMIX 1 EACH IV SCH (18:09)
[2016-04-28] MEDS: traZODone 50 MG TABLET PO SCH (21:22)
[2016-04-29] MEDS: ALBUTEROL 1.25 MG/3 ML NEB RESP TX SCH ×6 (00:20→20:36)
[2016-04-29] MEDS: FUROSEMIDE 40 MG/4 ML VIAL IV SCH ×4 (00:27→19:55)
[2016-04-29] MEDS: ENOXAPARIN 100 MG/ML SYRINGE SUBCUT SCH ×2 (00:27→10:16)
[2016-04-29 04:04] LABS: INR 1.1; PT Patient Result 11.4 SECS
--- NOTE | 2016-04-29 09:16 | Physician Query Form ---
CLICK EDIT DOCUMENT TO SELECT QUERY ANSWER --> OK --> SIGN Ritu Salamanca RN Clinical Instrument Technician Helper W) [phone] (f) [phone] [email or web address] PROVIDERS: Make your selection(s) from the choices in EACH section by typing an "x" and enter comments in the comment section. Please use your independent medical judgment in providing your response. This request does not imply that any particular answer is desired or expected. CLINICAL INDICATORS: (Providers should not edit this section) The below diagnosis was documented in the record, but is not consistently noted in subsequent documentation. Diagnosis: Pneumonia Based on documentation of "possible community acquired pneumonia". Pt. treated with IV Levaquin. Please clarify the following: ( ) The above diagnosis was monitored, evaluated, and/or treated and is a confirmed diagnosis ( ) The above diagnosis was ruled out (x ) The above diagnosis is still a likely, suspected, probable diagnosis ( ) Other, please specify: ( ) Clinically unable to determine COMMENTS: Use of terms such as suspected, likely, or probable (associated with a specific diagnosis that is being evaluated, monitored, or treated as if it exists) are acceptable and can be restated in the discharge summary if not ruled out. [facility]
--- NOTE | 2016-04-29 09:18 | Physician Query Form ---
CLICK EDIT DOCUMENT TO SELECT QUERY ANSWER --> OK --> SIGN Ritu Salamanca RN Clinical Head Cook W) [phone] (f) [phone] [email or web address] PROVIDERS: Make your selection(s) from the choices in EACH section by typing an "x" and enter comments in the comment section. Please use your independent medical judgment in providing your response. This request does not imply that any particular answer is desired or expected. CLINICAL INDICATORS: (Providers should not edit this section) Based on documentation of "history of CHF", Echo showed EF of 65% with Grade I/ IV diastolic dysfunction, treated with IV Lasix. Please provide further specificity regarding CHF. ACUITY: ( ) Acute ( ) Chronic (x ) Acute on Chronic ( ) Clinicallly unable to determine TYPE: ( ) Systolic ( x) Diastolic ( ) Combined Systolic/Diastolic ( ) Other, please specify: ( ) Clinically unable to determine ( ) The patient does NOT have CHF COMMENTS: Use of terms such as suspected, likely, or probable (associated with a specific diagnosis that is being evaluated, monitored, or treated as if it exists) are acceptable and can be restated in the discharge summary if not ruled out. [facility]ENTERVal[facility]
--- NOTE | 2016-04-29 09:23 | Physician Query Form ---
CLICK EDIT DOCUMENT TO SELECT QUERY ANSWER --> OK --> SIGN Ritu Salamanca RN Clinical Collection Systems Worker W) [phone] (f) [phone] [email or web address] PROVIDERS: Make your selection(s) from the choices in EACH section by typing an "x" and enter comments in the comment section. Please use your independent medical judgment in providing your response. This request does not imply that any particular answer is desired or expected. CLINICAL INDICATORS: (Providers should not edit this section) Based on conflicting documentation of "acute pulmonary embolism. The CT of the chest was equivocal for PE." Dr. Whitten progress note states " She also had a negative CT angiogram looking for pulmonary emboli". Pt. treated with Coumadin. Diagnosis: Pulmonary embolism Please clarify the following: ( ) The above diagnosis was monitored, evaluated, and/or treated and is a confirmed diagnosis ( ) The above diagnosis was ruled out (x ) The above diagnosis is still a likely, suspected, probable diagnosis ( ) Other, please specify: ( ) Clinically unable to determine COMMENTS: Use of terms such as suspected, likely, or probable (associated with a specific diagnosis that is being evaluated, monitored, or treated as if it exists) are acceptable and can be restated in the discharge summary if not ruled out. [facility]
[2016-04-29] MEDS: GABAPENTIN 300 MG CAPSULE PO SCH ×3 (09:55→20:33)
[2016-04-29] MEDS: LURASIDONE 40 MG TABLET PO SCH (09:55)
[2016-04-29] MEDS: DIVALPROEX 500 MG TABLET PO SCH ×2 (09:55→20:33)
[2016-04-29] MEDS: clonazePAM 0.5 MG TABLET PO SCH ×2 (09:55→20:33)
[2016-04-29] MEDS: VENLAFAXINE 75 MG TABLET PO SCH (09:55)
[2016-04-29] MEDS: LISINOPRIL 5 MG TABLET PO SCH (09:56)
[2016-04-29] MEDS: PANTOPRAZOLE 40 MG TABLET PO SCH ×2 (09:56→20:33)
[2016-04-29] MEDS: CARVEDILOL 3.125 MG TABLET PO SCH ×2 (10:05→20:33)
--- NOTE | 2016-04-29 10:44 | Hospitalist Progress Note ---
Assessment and Plan (1) CHF (congestive heart failure) Status: Acute Assessment and plan: She continues on furosemide. She does very little physical activity. She appears significantly improved. Current Visit: Yes (2) possible community acquired pneumonia Status: Acute Assessment and plan: The chest xray showed an equivocal pneumonia for which she was begun on antibiotics. This is day 5. Current Visit: Yes (3) Atypical chest pain Status: Acute Assessment and plan: No further chest pain. Troponins have been normal. Current Visit: Yes (4) Pulmonary emboli Status: Acute Assessment and plan: The CT of the chest was equivocal for PE, although venous duplex Doppler did not show DVT. She is presently on therapeutic anticoagulation. Sh has been started on warfarin. I will order a ventilation perfusion lung scan to hopefully clarify whether she did or did not have PE. Current Visit: Yes (5) Hypertension Status: Chronic Assessment and plan: BP today is 102/51. Current Visit: Yes Qualifiers: Hypertension type: essential hypertension Qualified Code(s): I10 - Essential (primary) hypertension (6) Morbid obesity Status: Chronic Current Visit: Yes Qualifiers: Obesity type: with alveolar hypoventilation Qualified Code(s): E66.2 - Morbid (severe) obesity with alveolar hypoventilation (7) Paranoid schizophrenia Status: Chronic Current Visit: Yes Hospitalist: Subjective Interval history: No new complaints. Exam - Constitutional Vitals: Period Temp Pulse Resp BP Sys/Langston Pulse Ox Last 24 Hr 96.4 F-98.1 F 74-106 16-20 102-127/50-61 92-99 General appearance: no acute distress, morbidly obese - Head Head exam: Present: normal inspection - Neck Neck exam: Present: normal inspection - Respiratory Respiratory exam: Present: clear to auscultation bilaterally, decreased breath sounds - Cardiovascular Cardiovascular exam: Present: regular rate and rhythm - GI/Abdominal GI/Abdominal exam: Present: normal bowel sounds, soft, other (nontender) - Extremities Exam Extremities exam: Present: normal inspection - Skin Skin exam: Present: normal color Results - Labs CBC & BMP: 04/27/16 05:36 04/27/16 05:36 Specialty Discharge - Follow Up or Referrals - Discharge Medications No Action Alum/Mag/Simeth Liquid [Mylanta Liquid] 5 ml PO Q4HR PRN PRN Reason: Indigestion Trazodone HCl 100 mg PO QPM Gabapentin Cap/Tab [Neurontin Cap/Tab] 300 mg PO TID Acetaminophen Tab [Tylenol Tab] 500 mg PO Q6HR PRN PRN Reason: Pain Zolpidem Tartrate [Ambien] 10 mg PO QPM PRN MDD 10 mg PRN Reason: Sleep Cholecalciferol (Vitamin D3) [Vitamin D3] 5,000 unit PO DAILY Albuterol Sulfate [Proair HFA] 1 puff Q6HR Pravastatin [Pravachol] 10 mg QPM Carvedilol [Coreg] 3.125 mg PO BID clonazePAM [Klonopin] 1 mg PO BID Venlafaxine [Effexor] 75 mg PO BID W/MEALS Promethazine Tab [Phenergan Tab] 25 mg PO Q8HR PRN PRN Reason: Nausea Oxycodone HCl/Acetaminophen [Percocet 10-325 mg Tablet] 10 - 325 mg PO Q8HR PRN PRN Reason: Pain Omeprazole Magnesium [Prilosec Otc] 20 mg PO BID Methocarbamol Tab [Robaxin Tab] 750 mg PO BID Meloxicam [Mobic] 7.5 mg PO DAILY Lurasidone [Latuda] 40 mg PO DAILY Lisinopril 5 mg PO QPM Furosemide Tab [Lasix Tab] 40 mg PO DAILY Estradiol [Estrace Tab] 0.5 mg PO DAILY Divalproex ER [Depakote ER] 500 mg PO BID Cranberry Fruit [Cranberry] 450 mg PO DAILY
--- NOTE | 2016-04-29 12:06 | Nuclear Medicine Report ---
Exam: NM lung scan vent and per Date: 04/29/2016 10:32 AM Comparison: Chest x-ray 04/29/2016 Indication: Pulmonary embolus, chest pain, high d-dimer Technique: Patient inhaled 40 mCi technetium 99m DTPA and limited 3 view ventilation lung scan obtained. Patient injected with 5 mCi technetium 99m MMA and limited 3 view perfusion lung scan obtained. Findings: Multiple ventilation defects are noted. No unmatched perfusion defects are identified. Impression: Limited low probability lung scan. PROCEDURE INTERPRETED AT [facility] DEPARTMENT OF RADIOLOGY Final Report Signed by: Dr. Shanti Savage
[2016-04-29] MEDS: ONDANSETRON 4 MG/2 ML VIAL IV PRN ×2 (12:15→18:56)
--- NOTE | 2016-04-29 12:46 | XRay Report ---
Exam: XR chest post lung scan Date: 04/29/2016 12:00 AM Comparison: 04/25/2016 Indication: Shortness of breath, post lung scan Technique: AP sitting chest Findings: The heart is smaller in size. Decreased density in the lower lung zones. Possible small pleural effusions. Stable mediastinum with degenerative changes. Impression: Improved CHF/bilateral pneumonia with probable small pleural effusions. The exam is limited by overlapping soft tissues. PROCEDURE INTERPRETED AT [facility] DEPARTMENT OF RADIOLOGY Final Report Signed by: Dr. Shanti Savage
--- NOTE | 2016-04-29 17:35 | Pulmonology Progress Note ---
Pulmonary - PN: Subj Interval history: Patient is a 55-year-old very obese white lady that is mainly bedridden. She came in with some chest pain and shortness of breath. She has a history of schizophrenia and has been a smoker in the past. She felt like she is retaining fluid and has diuresed fairly well. She looks like she is breathing okay at the present time. Her VQ lung scan was low probability. She looks comfortable today. Exam (Progress Note) - Constitutional Vitals: Period Temp Pulse Resp BP Sys/Langston Pulse Ox Last 24 Hr 96.4 F-98.1 F 85-99 16-20 87-127/51-61 94-99 Exam: General appearance: no acute distress, morbidly obese, she is not in any distress lying in bed. - Head Head exam: Present: normal inspection, normocephalic - Eye Eye exam: Present: EOMI. Absent: scleral icterus Pupils: Present: RA - ENT ENT exam: Present: other (she has a class III Mallampati exam) - Neck Neck exam: Present: normal inspection. Absent: lymphadenopathy, thyromegaly - Respiratory Respiratory exam: Present: She has fairly good breath sounds bilaterally and her lungs sound reasonably clear now. - Cardiovascular Cardiovascular exam: Present: regular rate and rhythm. Absent: gallop, systolic murmur - GI/Abdominal GI/Abdominal exam: Present: normal bowel sounds, soft, other (she is very obese abdomen). Absent: distended, organomegaly, tenderness - Extremities Exam Extremities exam: Present: edema (she does have some brawny edema lower extremities). Absent: calf tenderness - Neurological Exam Neurological exam: Present: alert, oriented X3, CN II-XII intact. Absent: motor sensory deficit - Psychiatric Psychiatric exam: Present: normal mood, flat affect. Absent: agitated - Skin Skin exam: Present: warm, dry Results - Labs CBC & BMP: 04/27/16 05:36 04/27/16 05:36 Assessment and Plan (1) Obesity hypoventilation syndrome Status: Acute Assessment and plan: The patient does appear to have chronic CO2 retention with obesity hypoventilation syndrome. She seems to be reasonably comfortable at present. We'll try a little Diamox and continue bronchodilator therapy. Her respiratory status appears stable. Current Visit: Yes (2) Morbid obesity Status: Chronic Assessment and plan: She is a [facility] patient who is mainly bedridden. She will probably not get much better. Current Visit: Yes Qualifiers: Obesity type: with alveolar hypoventilation Qualified Code(s): E66.2 - Morbid (severe) obesity with alveolar hypoventilation (3) History of congestive heart failure Status: Acute Assessment and plan: She probably does have some mild volume overload and is getting treatment. She is down 5 kg now and has diuresed fairly well. Current Visit: Yes (4) Paranoid schizophrenia Status: Chronic Assessment and plan: She seems to be relatively calm and alert at present. Current Visit: Yes (5) Hypertension Status: Chronic Assessment and plan: She will continue with antihypertensive medications. Her blood pressure stable. Current Visit: Yes Qualifiers: Hypertension type: essential hypertension Qualified Code(s): I10 - Essential (primary) hypertension (6) COPD (chronic obstructive pulmonary disease) Status: Chronic Assessment and plan: She has stopped smoking and will continue with bronchodilator therapy. She seems to be breathing comfortably at present and is probably close to baseline. She can probably go back to the [facility] at any time. Current Visit: Yes (7) Atypical chest pain Status: Acute Assessment and plan: She has no signs of ischemia and she looks comfortable at present. Current Visit: Yes Specialty Discharge - Follow Up or Referrals - Discharge Medications No Action Alum/Mag/Simeth Liquid [Mylanta Liquid] 5 ml PO Q4HR PRN PRN Reason: Indigestion Trazodone HCl 100 mg PO QPM Gabapentin Cap/Tab [Neurontin Cap/Tab] 300 mg PO TID Acetaminophen Tab [Tylenol Tab] 500 mg PO Q6HR PRN PRN Reason: Pain Zolpidem Tartrate [Ambien] 10 mg PO QPM PRN MDD 10 mg PRN Reason: Sleep Cholecalciferol (Vitamin D3) [Vitamin D3] 5,000 unit PO DAILY Albuterol Sulfate [Proair HFA] 1 puff Q6HR Pravastatin [Pravachol] 10 mg QPM Carvedilol [Coreg] 3.125 mg PO BID clonazePAM [Klonopin] 1 mg PO BID Venlafaxine [Effexor] 75 mg PO BID W/MEALS Promethazine Tab [Phenergan Tab] 25 mg PO Q8HR PRN PRN Reason: Nausea Oxycodone HCl/Acetaminophen [Percocet 10-325 mg Tablet] 10 - 325 mg PO Q8HR PRN PRN Reason: Pain Omeprazole Magnesium [Prilosec Otc] 20 mg PO BID Methocarbamol Tab [Robaxin Tab] 750 mg PO BID Meloxicam [Mobic] 7.5 mg PO DAILY Lurasidone [Latuda] 40 mg PO DAILY Lisinopril 5 mg PO QPM Furosemide Tab [Lasix Tab] 40 mg PO DAILY Estradiol [Estrace Tab] 0.5 mg PO DAILY Divalproex ER [Depakote ER] 500 mg PO BID Cranberry Fruit [Cranberry] 450 mg PO DAILY
[2016-04-29] MEDS: WARFARIN 5 MG TABLET PO SCH (18:58)
[2016-04-29] MEDS: LEVOFLOXACIN INJ 750 MG in PREMIX 1 EACH IV SCH (19:59)
[2016-04-29] MEDS: traZODone 50 MG TABLET PO SCH (20:33)
[2016-04-30] MEDS: ENOXAPARIN 100 MG/ML SYRINGE SUBCUT SCH ×2 (00:28→10:47)
[2016-04-30] MEDS: ALBUTEROL 1.25 MG/3 ML NEB RESP TX SCH ×4 (01:40→11:12)
[2016-04-30] MEDS: FUROSEMIDE 40 MG/4 ML VIAL IV SCH ×3 (02:30→12:20)
[2016-04-30 04:57] LABS: Basophils % 0.2 % (0.0-0.8); Eosinophils # 0.1 10*3/uL (0.0-0.87); Eosinophils % 0.7 % (0.00-10.9); Hematocrit 37.3 VOL% (35.7-47.0); Hemoglobin 11.1 GM/DL (12.0-16.0); Immature Granulocytes % 0.5 %; Immature Granulocytes Absolute 0.04 #; Lymphocytes # 1.7 10*3/uL (1.4-4.0); Lymphocytes % 19.2 % (21.3-54.2); Mean Corpuscular HGB Conc 29.8 GM/DL (32-36); Mean Corpuscular Hemoglobin 28 PG (27-34); Mean Corpuscular Volume 92.3 FL (87-102); Mean Platelet Volume 8.7 FL (9.6-12.0); Monocytes # 1.2 10*3/uL (0.11-0.8); Monocytes % 13.4 % (1.7-12.7); Neutrophils # 5.7 10*3/uL (1.4-7.4); Platelet Count 293 10*3/uL (130-400); Red Blood Count 4.04 10*6/uL (3.8-5.5); Red Cell Distribution Width 15.9 % (9.3-17.3); White Blood Count 8.6 10*3/uL (4.5-13.71)
[2016-04-30 05:06] LABS: INR 1.1; PT Patient Result 11.9 SECS
[2016-04-30 05:32] LABS: Calcium 8.3 MG/DL (8.5-10.1); Osmolality,Calculated 274.1 MOS/KG (273-304); Potassium 4.7 MMOL/L (3.5-5.1)
--- NOTE | 2016-04-30 10:33 | Discharge Summary ---
Hospital Course - Hospital Course Hospital Course: Ms. Feldman was hospitalized with worsening dyspnea. She was seen in consultation by Pulmonary. It was their impression that she was experiencing acute on chronic CHF. A V/Q scan was low probability for PE. She underwent diuresis losing 12 pounds during her hospitalization. At the time of discharge, she was significantly better. Diagnosis - Discharge Diagnosis (1) CHF (congestive heart failure) Status: Acute (2) possible community acquired pneumonia Status: Acute (3) Atypical chest pain Status: Acute (4) Pulmonary emboli Status: Acute (5) Hypertension Status: Chronic (6) Morbid obesity Status: Chronic (7) Paranoid schizophrenia Status: Chronic Specialty Discharge - Follow Up or Referrals - Discharge Medications No Action Alum/Mag/Simeth Liquid [Mylanta Liquid] 5 ml PO Q4HR PRN PRN Reason: Indigestion Trazodone HCl 100 mg PO QPM Gabapentin Cap/Tab [Neurontin Cap/Tab] 300 mg PO TID Acetaminophen Tab [Tylenol Tab] 500 mg PO Q6HR PRN PRN Reason: Pain Zolpidem Tartrate [Ambien] 10 mg PO QPM PRN MDD 10 mg PRN Reason: Sleep Cholecalciferol (Vitamin D3) [Vitamin D3] 5,000 unit PO DAILY Albuterol Sulfate [Proair HFA] 1 puff Q6HR Pravastatin [Pravachol] 10 mg QPM Carvedilol [Coreg] 3.125 mg PO BID clonazePAM [Klonopin] 1 mg PO BID Venlafaxine [Effexor] 75 mg PO BID W/MEALS Promethazine Tab [Phenergan Tab] 25 mg PO Q8HR PRN PRN Reason: Nausea Oxycodone HCl/Acetaminophen [Percocet 10-325 mg Tablet] 10 - 325 mg PO Q8HR PRN PRN Reason: Pain Omeprazole Magnesium [Prilosec Otc] 20 mg PO BID Methocarbamol Tab [Robaxin Tab] 750 mg PO BID Meloxicam [Mobic] 7.5 mg PO DAILY Lurasidone [Latuda] 40 mg PO DAILY Lisinopril 5 mg PO QPM Furosemide Tab [Lasix Tab] 40 mg PO DAILY Estradiol [Estrace Tab] 0.5 mg PO DAILY Divalproex ER [Depakote ER] 500 mg PO BID Cranberry Fruit [Cranberry] 450 mg PO DAILY Discharge Plan - Discharge Data Disposition: Disch/Xfer to Snf Condition at Discharge: Stable Discharge Diet: advance to your usual diet Activity: resume usual activities as tolerated Hygiene: no restrictions - Discharge Medications Continue Alum/Mag/Simeth Liquid [Mylanta Liquid] 5 ml PO Q4HR PRN PRN Reason: Indigestion Trazodone HCl 100 mg PO QPM Gabapentin Cap/Tab [Neurontin Cap/Tab] 300 mg PO TID Acetaminophen Tab [Tylenol Tab] 500 mg PO Q6HR PRN PRN Reason: Pain Zolpidem Tartrate [Ambien] 10 mg PO QPM PRN MDD 10 mg PRN Reason: Sleep Cholecalciferol (Vitamin D3) [Vitamin D3] 5,000 unit PO DAILY Albuterol Sulfate [Proair HFA] 1 puff Q6HR Pravastatin [Pravachol] 10 mg QPM Carvedilol [Coreg] 3.125 mg PO BID clonazePAM [Klonopin] 1 mg PO BID Venlafaxine [Effexor] 75 mg PO BID W/MEALS Promethazine Tab [Phenergan Tab] 25 mg PO Q8HR PRN PRN Reason: Nausea Oxycodone HCl/Acetaminophen [Percocet 10-325 mg Tablet] 10 - 325 mg PO Q8HR PRN PRN Reason: Pain Omeprazole Magnesium [Prilosec Otc] 20 mg PO BID Methocarbamol Tab [Robaxin Tab] 750 mg PO BID Meloxicam [Mobic] 7.5 mg PO DAILY Lurasidone [Latuda] 40 mg PO DAILY Lisinopril 5 mg PO QPM Furosemide Tab [Lasix Tab] 40 mg PO DAILY Estradiol [Estrace Tab] 0.5 mg PO DAILY Divalproex ER [Depakote ER] 500 mg PO BID Cranberry Fruit [Cranberry] 450 mg PO DAILY - Follow Up or Referral - Forms/Instructions Exam - Constitutional Vitals: Period Temp Pulse Resp BP Sys/Langston Pulse Ox Last 24 Hr 97.2 F-98.2 F 73-102 16-250 87-128/53-64 90-100 Discharge Results Procedures and tests throughout hospitalization: Pending Orders 05/01/16 04:00 Prothrombin Time INR IN AM 05/02/16 04:00 Prothrombin Time INR IN AM Labs on day of discharge: Labs from last 24 hours 01/02/0404/30/16 04/30/16 04:22 04:22 04:22 WBC 8.6 RBC 4.04 Hgb 11.1 L Hct 37.3 MCV 92.3 MCH 28 MCHC 29.8 L RDW 15.9 Plt Count 293 MPV 8.7 L Neut % (Auto) 66.0 Lymph % (Auto) 19.2 L Duval % (Auto) 13.4 H Eos % (Auto) 0.7 Baso % (Auto) 0.2 Neut # (Auto) 5.7 Lymph # (Auto) 1.7 Duval # (Auto) 1.2 H Eos # (Auto) 0.1 Baso # (Auto) 0.0 Immature Gran % 0.5 Nucleated RBC % 0.0 Immature Gran # 0.04 Nucleated RBCs # 0.00 INR 1.1 PT Patient/Control Mix 11.9 Sodium 135 L Potassium 4.7 Chloride 95 L Carbon Dioxide 31 Anion Gap 13.7 BUN 27 H Creatinine 2.70 H GFR Calculation 30 BUN/Creatinine Ratio 10.00 Glucose 106 Calculated Osmolality 274.1 Calcium 8.3 L DS: Provider Date of admission: 04/25/16 20:32 Primary care physician: . No PCP Attending physician on admission: Js Knapp Consults: 04/25/16 22:37 Consult to Physician [CONS] Routine Comment: Consulting Provider: Dewey Ayala Consult to Specialist Group: Pulmonology 04/25/16 22:50 Consult to Pharmacy [CONS] Routine Reason for Pharmacy Consult: Adjust Meds Renal Funct 04/27/16 09:11 Consult to Physical Therapy [CONS] Routine Reason for Physical Therapy: Evaluate and Treat Discharging clinician: Js Knapp Expected date of discharge: 04/30/16
[2016-04-30] MEDS: PANTOPRAZOLE 40 MG TABLET PO SCH (10:40)
[2016-04-30] MEDS: LISINOPRIL 5 MG TABLET PO SCH (10:40)
[2016-04-30] MEDS: DIVALPROEX 500 MG TABLET PO SCH (10:40)
[2016-04-30] MEDS: clonazePAM 0.5 MG TABLET PO SCH (10:40)
[2016-04-30] MEDS: LURASIDONE 40 MG TABLET PO SCH (10:41)
[2016-04-30] MEDS: GABAPENTIN 300 MG CAPSULE PO SCH (10:41)
[2016-04-30] MEDS: CARVEDILOL 3.125 MG TABLET PO SCH (10:41)
[2016-04-30] MEDS: VENLAFAXINE 75 MG TABLET PO SCH (10:41)
[2016-04-30] MEDS: ONDANSETRON 4 MG/2 ML VIAL IV PRN (10:49)
[2016-04-30 16:26] VITALS: BP 91/48
[2016-05-01] MEDS ORDERED: LEVOFLOXACIN INJ 750 MG in PREMIX 1 EACH IV SCH (21:00)
== END 2016-04-30 18:15 | DRG 175 ==
LOC: N.ED 17:17 → N.EDINP 20:32 → N.TELEN 21:47